=== PATIENT | female | born 1970 | race African-American/Black ===

== ENCOUNTER 2016-12-30 21:18 | Emergency (ER) | payer OTHER, SELFPAY ==
[2016-12-30] MEDS ORDERED: Lorazepam 2 MG/ML VIAL ONE ×2 (21:40→21:42)
[2016-12-30 21:48] LABS: #Basophils 0.1 thou/uL (0.0-0.2); #Eosinphils 0.2 thou/uL (0.0-0.7); #Lymphocytes 3.4 thou/uL (1.20-3.40); #Monocytes 0.8 thou/uL (0.11-0.59); #Neutrophils 3.8 thou/uL (1.40-6.50); %Basophils 1.4 % (0.0-1.0); %Eosinophils 2.1 % (0.0-10.0); Hematocrit 43.6 % (36.0-47.0); Mean Platelet Volume 9.4 fL (7.4-10.4); Red Blood Cell (RBC) Count 4.94 mill/uL (4.20-5.40); White Blood Cell (WBC) Count 8.4 thou/uL (4.8-10.8)
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
[2016-12-30 21:58] LABS: Anion Gap 16 mmol/L (10-20); BUN (Urea Nitrogen) 13 mg/dL (7.0-18.7); Calc. Creatinine Clearance 0 mL/min (70-130); Calcium 9.8 mg/dL (7.8-10.44); Carbon Dioxide 26 mmol/L (22-29); Chloride 100 mmol/L (98-107); Estimated GFR-MDRD 85; Lipase 15 U/L (8-78)
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
== END 2016-12-30 23:10 | disposition home or self-care (01) ==
LOC: ERS 21:18
DX: S13.4XXA Sprain of ligaments of cervical spine, initial encounter (principal); S09.90XA Unspecified injury of head, initial encounter; T14.8XXA Other injury of unspecified body region, initial encounter; I10 Essential (primary) hypertension; V43.52XA Car driver injured in collision with other type car in traffic accident, initial encounter
CPT/HCPCS: 70450; 71010; 72125; 72170; 80048; 83690; 84703; 85025; 86850; 86900; 86901; 96374; G0390; J2060